=== PATIENT | female | born 1995 | race Caucasian/White ===

== ENCOUNTER 2018-12-27 08:59 | Emergency (ER) | payer OTHER ==
[~2018-12-27] VITALS: Ht 149.9 cm; Wt 62.3 kg
[2018-12-27] MEDS ORDERED: DICYCLOMINE 10 MG CAP PO ONE (09:45)
[2018-12-27 11:19] VITALS: BP 126/81
--- NOTE | 2018-12-27 11:22 | REP ---
Emergency first trimester obstetric sonography: History: Pelvic cramping. Pelvic pain. Findings: Transabdominal scanning demonstrates normal uterine dimensions of 8.3 x 4.7 x 5.4 cm. The uterus is retroverted. There is an intrauterine gestational sac with mean sac size diameter 6.6 mm. This corresponds with a gestational age estimate of 5 weeks 3 days. No embryonic pole is visualized. The patient declined transvaginal scanning. The ovary is not seen on the right side. The left ovary measures 2.7 x 2.5 x 2.0 cm. There is a 2.0 cm hypoechoic area in the left ovary consistent with corpus luteum. Doppler flow in the right ovary is normal with resistive index 0.36. There is a hypoechoic area anterior to the gestational sac measuring 1.3 cm in greatest diameter question subchorionic hemorrhage. Impression: Somewhat limited exam. Gestational sac-like structure in the uterus without observable embryonic pole. viability cannot be confirmed. 5 weeks 3 day size by sac size diameter. No free fluid is noted. The right ovary could not be seen. Electronically Signed by Alberto Cervantes MD 12/27/2018 11:30 A
[2018-12-27] MEDS ORDERED: KEFL500C17 PO (11:26)
[2018-12-27] MEDS ORDERED: MULTTAB20 PO (11:28)
== END 2018-12-27 11:35 | disposition home or self-care (01) ==
LOC: M ED 08:59
DX: O26.891 Other specified pregnancy related conditions, first trimester (principal); R10.2 Pelvic and perineal pain; O23.41 Unspecified infection of urinary tract in pregnancy, first trimester; O99.011 Anemia complicating pregnancy, first trimester; Z3A.01 Less than 8 weeks gestation of pregnancy; Z91.018 Allergy to other foods

== ENCOUNTER 2019-04-16 16:14 | Emergency (ER) | payer OTHER ==
[~2019-04-16] VITALS: Ht 149.9 cm; Wt 70.9 kg
[~2019-04-16 16:14] MED LIST: KEFL500C17 PO; MULTTAB20 PO
[2019-04-16] MEDS ORDERED: FERR325T18 (16:43)
[2019-04-16] MEDS ORDERED: DOCU100C16 (16:43)
[2019-04-16 16:49] LABS: BASO % 0.3 % (0.0-1.0); EOS # 0.1 10^3/uL (0.0-0.5); EOS % 1.1 % (0.0-3.0); LYMPH # 1.9 10^3/uL (1.5-5.0); LYMPH % 18.1 % (24.0-44.0); MEAN CORPUSCULAR HEMOGLOBIN 21.5 pg (27.0-33.0); MEAN CORPUSCULAR HGB CONC 30.8 g/dl (32.0-36.5); MEAN CORPUSCULAR VOLUME 69.9 fl (80.0-96.0); MONO # 0.7 10^3/uL (0.0-0.8); MONO % 6.2 % (0.0-5.0); NEUTROPHILS # 7.8 10^3/uL (1.5-8.5); NEUTROPHILS % 72.5 % (36.0-66.0); PLATELET COUNT, AUTOMATED 295 10^3/uL (150-450); RED BLOOD COUNT 3.72 10^6/uL (4.00-5.40); WHITE BLOOD COUNT 10.7 10^3/uL (4.0-10.0)
[2019-04-16 17:24] LABS: BLOOD UREA NITROGEN 14 MG/DL (7-18); CALCIUM LEVEL 8.2 MG/DL (8.5-10.1); CARBON DIOXIDE LEVEL 22 MEQ/L (21-32); CHLORIDE LEVEL 109 MEQ/L (98-107); CREATININE FOR GFR 0.56 MG/DL (0.55-1.30); GLOMERULAR FILTRATION RATE > 60.0 (>60); GLUCOSE, FASTING 89 MG/DL (70-100); POTASSIUM SERUM 3.7 MEQ/L (3.5-5.1); SODIUM LEVEL 139 MEQ/L (136-145)
[2019-04-16 18:30] VITALS: BP 125/68
--- NOTE | 2019-04-18 11:39 | ECGEPIP ---
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
== END 2019-04-16 18:41 | disposition home or self-care (01) ==
LOC: M ED 16:14
DX: O99.89 Other specified diseases and conditions complicating pregnancy, childbirth and the puerperium (principal); R55 Syncope and collapse; O99.012 Anemia complicating pregnancy, second trimester; D50.9 Iron deficiency anemia, unspecified; D56.9 Thalassemia, unspecified; Z3A.20 20 weeks gestation of pregnancy; Z79.899 Other long term (current) drug therapy; Z91.018 Allergy to other foods

== ENCOUNTER 2019-08-23 07:01 | Outpatient (CLI) | payer OTHER ==
[~2019-08-23] VITALS: Ht 152.4 cm; Wt 77.0 kg
[~2019-08-23 07:01] MED LIST changes: +BD I1MIS14 XX; +CYAN1000VL IM; +DOCU100C16; +FERR325T18
[2019-08-23 07:15] VITALS: BP 108/68
[2019-08-23] MEDS ORDERED: IRON SUCROSE 200 MG in NS 100 ML OVER 1 HR IV ONE (08:00)
[2019-08-23 09:00] VITALS: BP 127/69
== END 2019-08-23 09:30 | disposition home or self-care (01) ==
LOC: M INFU 07:01
PROVIDERS: ATTEND Internal Medicine Hematology & Oncology
DX: D64.9 Anemia, unspecified (principal); Z91.018 Allergy to other foods
CPT/HCPCS: 96365; J1756

== ENCOUNTER 2019-08-25 08:55 | Outpatient (CLI) | payer OTHER ==
[~2019-08-25] VITALS: Ht 152.4 cm; Wt 77.0 kg
[2019-08-25 09:10] VITALS: BP 107/66
[2019-08-25 09:25] VITALS: BP 122/72
[2019-08-25] MEDS ORDERED: IRON SUCROSE 200 MG in NS 100 ML OVER 1 HR IV ONE (10:00)
[2019-08-25 11:00] VITALS: BP 110/63
== END 2019-08-25 11:00 | disposition home or self-care (01) ==
LOC: M INFU 08:55
PROVIDERS: ATTEND Internal Medicine Hematology & Oncology
DX: O99.013 Anemia complicating pregnancy, third trimester (principal); Z3A.37 37 weeks gestation of pregnancy
CPT/HCPCS: 96365; J1756

== ENCOUNTER 2019-08-27 09:56 | Outpatient (CLI) | payer OTHER ==
[~2019-08-27] VITALS: Ht 152.4 cm; Wt 77.0 kg
[2019-08-27 10:00] VITALS: BP 109/70
[2019-08-27 11:00] VITALS: BP 110/68
[2019-08-27] MEDS ORDERED: IRON SUCROSE 200 MG in NS 100 ML OVER 1 HR IV ONE (11:00)
[2019-08-27 12:50] VITALS: BP 113/68
== END 2019-08-27 12:55 | disposition home or self-care (01) ==
LOC: M INFU 09:56
PROVIDERS: ATTEND Internal Medicine Hematology & Oncology
DX: D64.9 Anemia, unspecified (principal); Z91.018 Allergy to other foods
CPT/HCPCS: 96365; 96366; J1756

== ENCOUNTER 2019-08-28 15:50 | Inpatient (IN) | payer OTHER ==
[~2019-08-28] VITALS: Ht 149.9 cm; Wt 78.6 kg
[2019-08-28] VITALS (28 sets, daily range): BP systolic 105–139; BP diastolic 56–78
[2019-08-28] MEDS ORDERED: LACTATED RINGER'S 1000 ML IV STA (16:44)
[2019-08-28] MEDS ORDERED: LR 1,000 ML IV SCH (17:00)
[2019-08-28 17:12] LABS: BASO # 0.1 10^3/uL (0.0-0.2); BASO % 0.4 % (0.0-1.0); EOS # 0.1 10^3/uL (0.0-0.5); EOS % 0.6 % (0.0-3.0); HEMATOCRIT 29.1 % (36.0-47.0); HEMOGLOBIN 9.1 g/dl (12.0-15.5); LYMPH # 1.7 10^3/uL (1.5-5.0); LYMPH % 12.5 % (24.0-44.0); MEAN CORPUSCULAR HEMOGLOBIN 21.9 pg (27.0-33.0); MEAN CORPUSCULAR HGB CONC 31.3 g/dl (32.0-36.5); MONO # 0.8 10^3/uL (0.0-0.8); MONO % 5.6 % (0.0-5.0); NEUTROPHILS # 11.1 10^3/uL (1.5-8.5); NEUTROPHILS % 79.7 % (36.0-66.0); PLATELET COUNT, AUTOMATED 300 10^3/uL (150-450); RED BLOOD COUNT 4.16 10^6/uL (4.00-5.40); WHITE BLOOD COUNT 13.9 10^3/uL (4.0-10.0)
[2019-08-28] MEDS ORDERED: FENTANYL 2MCG/ML ROPIVACAINE 0.2% IN 0.9% NACL 100ML IVBAG As Ordered ONE (17:24)
[2019-08-28] MEDS ORDERED: OXYTOCIN 30 UNITS IN 0.9% NaCl 500ML IV BAG (J2590) As Ordered ONE (17:25)
[2019-08-28] MEDS: FENTANYL/ROPIVACAINE/NACL BAG 100 ML EPIDURAL SCH (17:57)
--- NOTE | 2019-08-28 18:28 | HPEPDOC ---
Obstetrical History & Physical General Date of Admission Aug 28, 2019 at 16:28 History of Present Illness Monica is a 24yo at 39+4wks by 1st trimester US, EDC 31AUG2019, who presents to D for labor check. She reports that she started wilber yesterday and have progressively become longer, stronger, and more regular. She reports bloody show and excellent movement; she denies LOF. Her is complicated by Beta Thalassemia and anemia. She is currently under the care of hematology for iron transfusions and B12 injections. Her last iron transfusion was yesterday, 27AUG2019. She is GBS negative, Blood type A Positive. She did not have her 1hr glucose collected; she opted for QID fingersticks, which were all WNL. Chief Complaint: Contractions, term Information Provided By: Patient Age: 24 : 4 Term: 2 Pre-term: 0 Abortions: 1 Livin Care Care: Good Care Number of Visits: 9 Dating Final EDC: Aug 31, 2019 Final EDC for Daily Update: Aug 31, 2019 Final EDC by: 1st trimester (US) Antepartum Course Diagnos(e)s Anemia Beta Thalassemia Overweight Height (inches): 59 Pre- weight (lbs.): 141 Admission Weight (lbs.): 173 Change in Weight (lbs.): 32 Past Medical History Past Obstetrical History : Past Obstetrical History: Multigravida (1: SAB 08/2015; 2: at 40wks in 2016, complicted by oligo, anemia, blood clot, female at 6lbs; 3: at 40wks in 2018, complicated by anemia, femle at 5lbs) [place] History: No pertinent history Past Medical History Medical History beta thalassemia Anemia Surgical History: Denies/None Family History Significant Family History: No pertinent family hx Social History Marital Status: Family situation: Spouse/partner home Psychosocial History: No pertinent psych hx * Smoker: non-smoker Alcohol: Denies Drugs: denies Allergies Coded Allergies: orange (Verified Adverse Reaction, Intermediate, VOMIT; HIVES; THROAT SWELLING, 08/28/19) strawberry (Verified Adverse Reaction, Intermediate, VOMIT; THROAT SWELLING; HIVES, 08/28/19) Medications Scheduled Cyanocobalamin (Cyanocobalamin Injection) 1,000 Mcg/1 Ml Vial, 1,000 MCG IM ASDIRECTED INJECT 1,000 MCG DAILY FOR 7 DAYS, THEN ONCE A WEEK FOR 4 WEEKS, THEN MONTHLY THERE AFTER Physical Examination Physical Examination GENERAL: Alert and oriented times three. ABDOMEN: Gravid and non-tender to touch. FETUS: Is vertex (VTX) by sterile vaginal examination (SVE); EFW by [place] 2800g HEART RATE: Regular rate. LUNGS: Observed nonlabored breathing EXTREMITIES: No edema. O: VSS, normotensive and afebrile FHR 145, moderate variability, + accels, some early and intermittent variable decelerations observed TOCO: 2-5 minutes, moderate by palpation VE: 5-6/70/-3, VTX, intact Vital Signs/I&O Vital Signs Date Time Temp Pulse Resp B/P (MAP) Pulse Ox O2 Delivery O2 Flow Rate FiO2 08/28/19 16:10 97.9 93 18 120/71 (87) 98 Laboratory Tests 08/28/19 16:45: Serology Scanned Report Hepatitis B Testing 08/28/19 16:51: White Blood Count 13.9H, Red Blood Count 4.16, Hemoglobin 9.1L, Hematocrit 29.1L, Mean Corpuscular Volume 70.0L, Mean Corpuscular Hemoglobin 21.9L, Mean Corpuscular Hemoglobin Concent 31.3L, Red Cell Distribution Width 15.1H, Platelet Count 300, Immature Granulocyte % (Auto) 1.2, Neutrophils (%) (Auto) 79.7H, Lymphocytes (%) (Auto) 12.5L, Monocytes (%) (Auto) 5.6H, Eosinophils (%) (Auto) 0.6, Basophils (%) (Auto) 0.4, Neutrophils # (Auto) 11.1H, Lymphocytes # (Auto) 1.7, Monocytes # (Auto) 0.8, Eosinophils # (Auto) 0.1, Basophils # (Auto) 0.1, Nucleated Red Blood Cells % (auto) 0.0, Syphilis Serology [Pending] Current Medications Medications (Trade) Dose Ordered Sig/Jesús Route PRN Reason Start Time Stop Time Status Last Admin Dose Admin Lactated Ringer's 1,000 ml @ 125 mls/hr Q8H IV 08/28/19 17:00 08/28/19 17:39 125 MLS/HR Vital Signs Date Time Temp Pulse Resp B/P (MAP) Pulse Ox O2 Delivery O2 Flow Rate FiO2 08/28/19 16:10 97.9 93 18 120/71 (87) 98 Laboratory Data 24H LABS Laboratory Tests 2 08/28/19 16:45: Serology Scanned Report Hepatitis B Testing 08/28/19 16:51: Immature Granulocyte % (Auto) 1.2, Neutrophils (%) (Auto) 79.7H, Lymphocytes (%) (Auto) 12.5L, Monocytes (%) (Auto) 5.6H, Eosinophils (%) (Auto) 0.6, Basophils (%) (Auto) 0.4, Neutrophils # (Auto) 11.1H, Lymphocytes # (Auto) 1.7, Monocytes # (Auto) 0.8, Eosinophils # (Auto) 0.1, Basophils # (Auto) 0.1, Nucleated Red Blood Cells % (auto) 0.0 CBC/BMP Laboratory Tests 08/28/19 16:51 Pertinent Laboratoy Data Blood Type: O- RBC Antibody Screen: Negative HIV: Negative Hepatitis B: Negative Rapid Plasma Reagin: Nonreactive Rubella: Immune Varicella: Immune Chlamydia/Gonorrhea: Negative Group B Streptococcus: Negative Quad Screen Test: Negative Anatomy Ultrasound Placenta Location: Anterior Normal Anatomy: Yes Placenta Previa: No Steroid Therapy Steroid Therapy: No Assessment/Plan Assessment Monica is a 24yo at 39+4wks who is being admitted for active labor. She currently has a category II FHT d/t intermittent variable decelerations, otherwise reassuring status. GBS Negative, Blood type A Positive, Anemia (received last iron 27AUG2019). Plan P: Admit to LND; consented pt for PIV start, admission labs drawn Start 2nd IV site; Type and Cross 2 units PO and IV hydration Epidural Now Expectant management at this time Consult with OB if indicted Anticipate CATRACHITA COCHRAN CNM Aug 28, 2019 18:28
[2019-08-28] MEDS ORDERED: LACTATED RINGER'S 1000 ML IV PRN (18:45)
[2019-08-28] MEDS ORDERED: ONDANSETRON 4MG/2ML VIAL (J2405) IV PRN (18:45)
[2019-08-28] MEDS ORDERED: REFRIGERATOR IV KEYS XX PRN (18:45)
[2019-08-28] MEDS ORDERED: EPIDURAL/PCA KEYS XX PRN (18:45)
[2019-08-28] MEDS ORDERED: ePHEDrine SULFATE 25 MG/5 ML(5MG/ML) SYRINGE IV PRN (18:45)
[2019-08-28] MEDS ORDERED: EPIDURAL COMMENT XX SCH (18:45)
[2019-08-28] MEDS ORDERED: NALOXONE INJ 0.4 MG/1 ML VIAL (J2310) IV PRN (18:45)
[2019-08-28] MEDS ORDERED: diphenhydrAMINE INJ 50MG/ML VIAL (J1200) IV PRN (18:45)
--- NOTE | 2019-08-28 22:04 | IPNPDOC ---
Obstetrical Progress Note Date of Service Aug 28, 2019 Subjective In room to asses pt and status s/p prolonged deceleration. 24yo at 39+4wks, currently admitted for active labor, comfortable with epidural in place, lying on left side and has no concerns at this time. She consents to cervical exam. Objective O: VSS, normotensive, afebrile FHR 150s, moderate variability with + accels. Prolonged deceleration noted at 2130 when she was positioned in HF; she was repositioned to right lateral, fetus recovered then had another deceleration; repositioned to left lateral and fetus returned to baseline. Intermittent variable decelerations noted. CTX: 2-3 minutes VE: AL/90/0 Vital Signs Date Time Temp Pulse Resp B/P (MAP) Pulse Ox O2 Delivery O2 Flow Rate FiO2 08/28/19 18:24 96.9 94 18 112/56 (74) 08/28/19 16:10 98 Sterile Vaginal Examination Postion/Presentation: Cephalic presentation Assessment and Plan Status: Reassuring Additional Comments A: Active labor with Category II FHT; resuscitative interventions in place P: Continue close monitoring EFM x2 Monitor maternal/ status expectant management Continue interventions as necessary Consult with OB if indicated Anticipate CATRACHITA YODER CNM Aug 28, 2019 22:04
[2019-08-28] MEDS ORDERED: OXYTOCIN DRIP 30 UNITS in IV 1 EA IV STA (23:36)
[2019-08-29] MEDS ORDERED: IBUPROFEN 600 MG TAB PO PRN
[2019-08-29] MEDS ORDERED: DIBUCAINE 1% OINTMENT 30GM TOP PRN
[2019-08-29] MEDS ORDERED: ACETAMINOPHEN TAB 650MG DOSE (2X325MG) PO PRN
[2019-08-29] MEDS ORDERED: IBUPROFEN 800 MG TAB PO PRN
[2019-08-29] MEDS ORDERED: DOCUSATE SODIUM 100 MG CAP PO PRN
[2019-08-29] MEDS ORDERED: ACETAMINOPHEN 500 MG TAB PO PRN
--- NOTE | 2019-08-29 00:05 | DNPDOC ---
[facility] Delivery Note Delivery Note DATE OF DELIVERY: 28 August 2019 PREDELIVERY DIAGNOSIS: 39+6wks gestation and active labor. POST DELIVERY DIAGNOSIS: Delivered. PROCEDURE: Spontaneous vaginal delivery PIPE CHIPPER: MATTHEW Cochran ANESTHESIA: Epidural ESTIMATED BLOOD LOSS: 200mL FINDINGS: 7lb 7oz (3360g) male. DELIVERY SUMMARY: Called to room for imminent delivery of Monica, a 24yo who was admitted during the afternoon in active labor, spontaneously progressed to C/C/+3, comfortable with epidural in place. She pushed effectively to deliver a viable male infant at 2325 this evening. head delivered LAKESHA and restituted to LOT. Right anterior shoulder delivered with ease with gentle downward traction, followed by left posterior shoulder, then remainder of body delivered to maternal abdomen. Once cord stopped pulsing, clamped x2 and cut by myself. Placenta delivered spontaneously and appeared intact, 3VC. Fundus firm and bleeding slowed to minimal; EBL 200mL. Upon inspection of vagina, cervix and perineum, a 2nd degree midline laceration was noted and repaired in usual fashion with 3-0 vicryl; hemostasis achieved. Mom and baby bonding well; anticipate uncomplicated PP course. CATRACHITA COCHRAN CNM Aug 29, 2019 00:05
[2019-08-29 01:29] VITALS: BP 104/58
[2019-08-29 06:00] VITALS: BP_SYST 102; BP_SYST 106; BP_DIAS 55; BP_DIAS 62
[2019-08-29] MEDS: FENTANYL/ROPIVACAINE/NACL BAG 100 ML EPIDURAL SCH ×2 (07:15→19:45)
[2019-08-29 08:24] LABS: HEMATOCRIT 25.1 % (36.0-47.0); HEMOGLOBIN 7.9 g/dl (12.0-15.5); MEAN CORPUSCULAR HEMOGLOBIN 21.9 pg (27.0-33.0); MEAN CORPUSCULAR HGB CONC 31.5 g/dl (32.0-36.5); MEAN CORPUSCULAR VOLUME 69.7 fl (80.0-96.0); PLATELET COUNT, AUTOMATED 253 10^3/uL (150-450); WHITE BLOOD COUNT 18.2 10^3/uL (4.0-10.0)
[2019-08-29] MEDS: FERROUS SULFATE 325MG TAB PO SCH (09:00)
[2019-08-29] MEDS: PRENATAL VITAMINS CHEWABLE TABLET PO SCH (09:00)
[2019-08-29 18:00] VITALS: BP 109/61
[2019-08-30 01:20] VITALS: BP 109/61
[2019-08-30 06:59] LABS: HEMATOCRIT 24.1 % (36.0-47.0); HEMOGLOBIN 7.5 g/dl (12.0-15.5); MEAN CORPUSCULAR HEMOGLOBIN 21.8 pg (27.0-33.0); MEAN CORPUSCULAR HGB CONC 31.1 g/dl (32.0-36.5); MEAN CORPUSCULAR VOLUME 70.1 fl (80.0-96.0); PLATELET COUNT, AUTOMATED 249 10^3/uL (150-450); RED BLOOD COUNT 3.44 10^6/uL (4.00-5.40); WHITE BLOOD COUNT 12.9 10^3/uL (4.0-10.0)
[2019-08-30] MEDS: FERROUS SULFATE 325MG TAB PO SCH (07:55)
[2019-08-30] MEDS: PRENATAL VITAMINS CHEWABLE TABLET PO SCH (07:55)
--- NOTE | 2019-08-30 10:43 | IPNPDOC ---
Progress Note Date of Service: Aug 30, 2019 Day#: 2 Progress Note PPD 2 SUBJECT: Monica is a 24yo [id number] who presented in active labor at 39+4wks, now status post uncomplicated spontaneous vaginal delivery, doing well day #2. She has been ambulating, voiding spontaneously without issue and tolerating regular diet. Breast feeding and supplementing with formula without issue. Reports lochia is like a normal period. No f/c/n/v/CP/SOB. OBJECTIVE: VITAL SIGNS: Within normal limits, afebrile. Alert and oriented times three. Abdomen: Fundus firm at U-2. Soft, NTTP. Extremities: no pain with palpation of calves ASSESSMENT: Monica is a 24yo [id number] who presented in active labor at 39+4wks, now status post uncomplicated spontaneous vaginal delivery, doing well day #2. Vitals within normal limits, afebrile, hemodynamically stable with no evidence of infection. PLAN: 1. Discharge to home today. 2. Tylenol for pain. 3. Regular diet 4. Undecided on contraception, will address at visit 5. Routine PP visit in 6 weeks in clinic. 6. Discussed return precautions at length. Dr. Hanny Stephenson MD VS, I&O, 24H, Fishbone Vital Signs/I&O Vital Signs Date Time Temp Pulse Resp B/P (MAP) Pulse Ox O2 Delivery O2 Flow Rate FiO2 08/30/19 01:20 97.6 104 16 109/61 98 Room Air Laboratory Data 24H LABS Laboratory Tests 2 08/30/19 06:43: Nucleated Red Blood Cells % (auto) 0.0 CBC/BMP Laboratory Tests 08/30/19 06:43 Hanny Stephenson MD Aug 30, 2019 10:42
[2019-08-30] MEDS ORDERED: ACET-683 PO (10:44)
[2019-08-30] MEDS ORDERED: PRENCHW PO (10:44)
--- NOTE | 2019-08-30 10:53 | DS.PDOC ---
Discharge Summary General Date of Admission Aug 28, 2019 at 16:28 Date of Discharge Aug 30, 2019 Attending Physician: Hanny Stephenson MD Discharge Summary PROCEDURES PERFORMED DURING STAY: spontaneous vaginal delivery ADMITTING DIAGNOSES: 1. active labor at term DISCHARGE DIAGNOSES: 1. active labor at term COMPLICATIONS/CHIEF COMPLAINT: LABOR. HISTORY OF PRESENT ILLNESS/HOSPITAL COURSE: Monica is a 24yo [id number] who presented in active labor at 39+4wks, now status post uncomplicated spontaneous vaginal delivery, doing well day #2. At time of discharge she was meeting all milestones. Vitals within normal limits, afebrile, hemodynamically stable with no evidence of infection. DISCHARGE MEDICATIONS: Please see below. ALLERGIES: Please see below. PHYSICAL EXAMINATION ON DISCHARGE: VITAL SIGNS: Within normal limits, afebrile. Alert and oriented times three. Abdomen: Fundus firm at U-2. Soft, NTTP. Extremities: no pain with palpation of calves LABORATORY DATA: Please see below. DISPOSITION: home DISCHARGE PLAN/INSTRUCTIONS: 1. Discharge to home today. 2. Tylenol for pain. 3. Regular diet 4. Undecided on contraception, will address at visit 5. Routine PP visit in 6 weeks in clinic. 6. Discussed return precautions at length. Vaginal rest 6 weeks, no heavy lifting. DISCHARGE CONDITION: Stable TIME SPENT ON DISCHARGE: Greater than [address] Hanny Stephesnon MD Vital Signs/I&Os Vital Signs Date Time Temp Pulse Resp B/P (MAP) Pulse Ox O2 Delivery O2 Flow Rate FiO2 08/30/19 01:20 97.6 104 16 109/61 98 Room Air Laboratory Data Labs 24H Laboratory Tests 2 08/30/19 06:43: Nucleated Red Blood Cells % (auto) 0.0 CBC/BMP Laboratory Tests 08/30/19 06:43 Discharge Medications Scheduled Cyanocobalamin (Cyanocobalamin Injection) 1,000 Mcg/1 Ml Vial, 1,000 MCG IM ASDI RECTED INJECT 1,000 MCG DAILY FOR 7 DAYS, THEN ONCE A WEEK FOR 4 WEEKS, THEN MONTHLY THERE AFTER Pnv No.118/Iron Fumarate/FA ( 19 Chewable Tablet) 1 Each Tab.chew, 1 TAB PO DAILY Scheduled PRN Acetaminophen (Acetaminophen) 500 Mg Tablet, 1,000 MG PO Q6HP PRN for PAIN LEVEL 6-10 Allergies Coded Allergies: orange (Verified Adverse Reaction, Intermediate, VOMIT; HIVES; THROAT SWELLING, 08/28/19) strawberry (Verified Adverse Reaction, Intermediate, VOMIT; THROAT SWELLING; HIVES, 08/28/19) Hanny Stephenson MD Aug 30, 2019 10:53
== END 2019-08-30 12:15 | disposition home or self-care (01) | DRG 807 ==
LOC: M LDO 15:50 → M LDI 16:28 → M OBS 08-29 01:07
PROVIDERS: ADMIT Registered Nurse Maternal Newborn; ATTEND Registered Nurse Maternal Newborn
PROC: 10E0XZZ Delivery of Products of Conception, External Approach (ICD-10-PCS; principal; 2019-08-28)
PROC: 0KQM0ZZ Repair Perineum Muscle, Open Approach (ICD-10-PCS; 2019-08-28)
DX: O99.02 Anemia complicating childbirth (principal); Z37.0 Single live birth; D56.1 Beta thalassemia; Z3A.39 39 weeks gestation of pregnancy; Z91.018 Allergy to other foods; Z79.899 Other long term (current) drug therapy; O77.0 Labor and delivery complicated by meconium in amniotic fluid; O70.1 Second degree perineal laceration during delivery

== ENCOUNTER → 2019-10-29 | Outpatient (CLI) | payer OTHER ==
[~2019-10-29] MED LIST changes: +ACET-683 PO; +PRENCHW PO
--- NOTE | 2019-10-29 10:17 | REP ---
PANOREX VIEW OF THE MANDIBLE. SINGLE VIEW. HISTORY: Sialolithiasis. Chronic sialoadenitis. FINDINGS: The bony mandible is intact. No bony erosive or destructive lesion is seen. No maxillary abnormalities observed. No evidence of paranasal sinus disease. No definite evidence of sialoadenitis although noncontrast CT or standard mandibular radiographs would be more sensitive for this. IMPRESSION: No significant abnormality noted. Electronically Signed by Alberto Cervantes MD 10/29/2019 11:26 A
== END ==
LOC: M LAB 08:03 → M RAD 08:03
PROVIDERS: ATTEND Otolaryngology
DX: K11.5 Sialolithiasis (principal); K11.23 Chronic sialoadenitis

== ENCOUNTER → 2019-10-30 | Outpatient (CLI) | payer OTHER | LOC: M LABSMTC 08:50 | PROVIDERS: ATTEND Anesthesiology | DX: Z01.818 Encounter for other preprocedural examination (principal); Z11.59 Encounter for screening for other viral diseases | CPT/HCPCS: C9803; U0003 ==

== ENCOUNTER 2019-11-02 07:38 | Day surgery (SDC) | payer OTHER ==
[~2019-11-02] VITALS: Ht 149.9 cm; Wt 69.4 kg
[~2019-11-02 07:38] MED LIST changes: +propofoL 200 MG/20 ML VIAL As Ordered ONE
[2019-11-02] MEDS ORDERED: LIDOCAINE 2% 100MG/5ML SDV (FOR ANES.) As Ordered ONE (08:54)
[2019-11-02] MEDS ORDERED: METOCLOPRAMIDE INJ 10MG/2ML VIAL (J2765 PER 1) As Ordered ONE (08:54)
[2019-11-02] MEDS ORDERED: propofoL 200 MG/20 ML VIAL As Ordered ONE (08:54)
[2019-11-02] MEDS ORDERED: ROCURONIUM BROMIDE 50 MG/5 ML VIAL As Ordered ONE (08:54)
[2019-11-02] MEDS ORDERED: MIDAZOLAM INJ 2MG/2ML VIAL (J2250 PER 1MG) As Ordered ONE (08:54)
[2019-11-02] MEDS ORDERED: fentaNYL 100 MCG/2 ML INJECTION (J3010) As Ordered ONE ×3 (08:55→10:29)
[2019-11-02] MEDS ORDERED: ONDANSETRON 4MG/2ML VIAL As Ordered ONE (08:56)
[2019-11-02] MEDS ORDERED: dexameTHASONE 4 MG/ML 1ML VIAL (J1100 PER 1MG) As Ordered ONE (08:56)
[2019-11-02] MEDS ORDERED: TRIAMCINOLONE ACETONIDE SUSP 40 MG/ML VIAL (J3301) As Ordered ONE (09:53)
[2019-11-02] MEDS ORDERED: LACRILUBE (AKWA TEARS) OPHTH OINT 3.5 GM As Ordered ONE (10:20)
[2019-11-02] MEDS ORDERED: LIDOCAINE W/EPINEPHRINE 1% 20ML VIAL As Ordered ONE (10:34)
[2019-11-02] MEDS ORDERED: ACETAMINOPHEN 1000MG 100ML IV BTL (OFIRMEV) (J0131 PER 10MG) As Ordered ONE (10:36)
[2019-11-02] MEDS ORDERED: LR 1,000 ML IV SCH ×2 (11:45)
[2019-11-02] MEDS ORDERED: PERCOCET 5MG/325MG TAB PO PRN (11:45)
[2019-11-02] MEDS ORDERED: METOCLOPRAMIDE INJ 10MG/2ML VIAL (J2765 PER 1) IV PRN (11:45)
[2019-11-02] MEDS ORDERED: ACETAMINOPHEN/CODEINE 300MG/30MG 12.5 ML UDC PO PRN (11:45)
[2019-11-02] MEDS ORDERED: fentaNYL 100 MCG/2 ML INJECTION (J3010) IV PRN (11:45)
[2019-11-02] MEDS ORDERED: ONDANSETRON 4MG/2ML VIAL IV PRN (11:45)
[2019-11-02] MEDS ORDERED: KETOROLAC 60 MG/2 ML VIAL As Ordered ONE (12:04)
[2019-11-02] MEDS ORDERED: SUGAMMADEX SODIUM 500 MG/5 ML VIAL (BRIDION) As Ordered ONE (12:04)
[2019-11-02 14:30] VITALS: BP 119/75
--- NOTE | 2019-11-03 13:51 | RO ---
DATE OF PROCEDURE: 11/02/2019 PREOPERATIVE DIAGNOSIS: Right parotid stone. POSTOPERATIVE DIAGNOSIS: Right parotid stone. OPERATIVE PROCEDURE: Sialoendoscopy, exploration duct, possible removal of stone. SURGEON: Alejandro Charles MD HIGH RISK OB: Roberto Zaman ANESTHESIA: DESCRIPTION OF PROCEDURE: Under general anesthesia with the patient intubated, the patient was draped in the usual manner. I infiltrated around the duct. I entered the duct easily, but it was completely stenotic. I dilated it up and passed probes through the proximal 3-4 cm. I inserted the sialendoscope, and I was not able to see any stone. In fact, I could not see very much just because it was just all sclerotic. I elected to explore it, so I made an incision semicircular anteriorly to the duct. I then dissected down using blunt dissection. I dissected again down 4 cm and was unable to see any stone. I did see some fatty soft tissue. There was minimal bleeding. Because I could not see a stone, I decided to end the procedure. I closed the incision with a 4-0 chromic suture interrupted. The patient extubated and transferred to the recovery room in excellent condition. Edited: 11/03/2019 1252 [facility]
== END 2019-11-02 14:45 | disposition home or self-care (01) ==
LOC: M SDC 07:38
PROVIDERS: ATTEND Otolaryngology
DX: K11.5 Sialolithiasis (principal); D64.9 Anemia, unspecified; Z79.899 Other long term (current) drug therapy; Z91.018 Allergy to other foods
CPT/HCPCS: 42699; J0131; J1100; J1885; J2250; J2405; J3010; J3301

== ENCOUNTER → 2019-11-29 | Outpatient (CLI) | payer OTHER ==
[~2019-11-29] MED LIST changes: -propofoL 200 MG/20 ML VIAL As Ordered ONE
--- NOTE | 2019-12-01 12:24 | REP ---
CT PARANASAL SINUSES/FACIAL BONES: 11/29/2019 TECHNIQUE: Unenhanced axial CT images of the face/paranasal sinuses were performed with coronal and sagittal reconstructions. COMPARISON: None. FINDINGS: There is a 6 mm hyperdensity within the right masseter muscle without surrounding edema. The paranasal sinuses and sinonasal passage ways are clear. The mastoid air cells are clear. Multiple palatine tonsillar calcifications are present consistent with chronic tonsillitis. No abnormal fluid collections are present. There is no salivary duct dilatation. The ocular, intraorbital, and intracranial anatomy is unremarkable. IMPRESSION: Right masseter muscle calcification without surrounding inflammation. No evidence of significant paranasal sinus mucosal disease. No evidence of sialolith or sialoadenitis. Electronically Signed by Van Alvarado DO 12/03/2019 08:37 A
== END ==
LOC: M RAD 07:15
PROVIDERS: ATTEND Otolaryngology
DX: K11.5 Sialolithiasis (principal); K11.23 Chronic sialoadenitis

== ENCOUNTER → 2020-01-06 | Day surgery (SDC) | payer OTHER ==
[~2020-01-06] VITALS: Ht 149.9 cm; Wt 71.2 kg
[~2020-01-06] MED LIST changes: +LIDOCAINE 1% MDV 20ML VIAL SQ PRN; +LR 1,000 ML IV ONE
[2020-01-06 11:00] LABS: HEMOGLOBIN 10.4 g/dl (12.0-15.5); MEAN CORPUSCULAR HEMOGLOBIN 19.7 pg (27.0-33.0); MEAN CORPUSCULAR HGB CONC 30.6 g/dl (32.0-36.5); MEAN CORPUSCULAR VOLUME 64.3 fl (80.0-96.0); PLATELET COUNT, AUTOMATED 325 10^3/uL (150-450); RED BLOOD COUNT 5.29 10^6/uL (4.00-5.40); WHITE BLOOD COUNT 7.3 10^3/uL (4.0-10.0)
[2020-01-06 11:25] VITALS: BP 129/59
== END | disposition home or self-care (01) ==
LOC: M SDC 10:25
PROVIDERS: ATTEND Otolaryngology
DX: K11.5 Sialolithiasis (principal); I10 Essential (primary) hypertension; D64.9 Anemia, unspecified; Z91.018 Allergy to other foods; Z79.899 Other long term (current) drug therapy